=== PATIENT | female | born 1985 | race Caucasian/White ===

== ENCOUNTER → 2017-09-23 09:35 | Outpatient (CLI) | payer OTHER, MEDICAID, SELFPAY | PROVIDERS: Family Provider Family Medicine; PCP Family Medicine | DX: R68.89 Other general symptoms and signs (principal) | CPT/HCPCS: 87400 ==

== ENCOUNTER → 2018-06-27 11:11 | Outpatient (CLI) | payer OTHER, MEDICAID, SELFPAY ==
--- NOTE | 2018-06-27 11:12 | DI.RAD.S_ITS ---
PROCEDURE: XR RIBS RT MIN 3V W CXR 1V INDICATIONS: right sided ant chest wall pain after falling down stairs 4d TECHNIQUE: 2 views of the right ribs were acquired, along with a single view chest. COMPARISON: None. FINDINGS: Surgical changes and devices: None. Bones and chest wall: No fractures or dislocations. No suspicious bony lesions. Overlying soft tissues appear unremarkable. Lungs and pleura: No pleural effusions or pneumothorax. Lungs appear clear. Mediastinum: Mediastinal contours appear normal. Heart size is normal. IMPRESSION: No displaced right rib fractures. Dictated by: Marla Tavera M.D. on 06/27/2018 at 11:50 Approved by: Marla Tavera M.D. on 06/27/2018 at 11:58
== END ==
PROVIDERS: PCP Family Medicine; Visit Provider Physician Assistant
DX: R07.89 Other chest pain (principal)
CPT/HCPCS: 71101

== ENCOUNTER → 2018-11-13 15:14 | Outpatient (CLI) | payer OTHER, MEDICAID, SELFPAY ==
[2018-11-13 16:57] LABS: HCG Quantitative /Beta subunit < 2.39 mIU/mL
== END ==
PROVIDERS: PCP Family Medicine; Visit Provider Physician Assistant
DX: M54.5 Low back pain (principal)
CPT/HCPCS: 36415; 84702

== ENCOUNTER → 2019-01-10 08:01 | Outpatient (CLI) | payer OTHER, MEDICAID, SELFPAY ==
[2019-01-10 08:32] LABS: Appearance Urine UA CLEAR; Bilirubin Urine UA NEGATIVE (NEGATIVE); Color Urine UA YELLOW; Glucose Urine UA NEGATIVE (Negative); Ketones Urine UA NEGATIVE (NEGATIVE); Leukocyte Esterase Urine UA NEGATIVE (NEGATIVE); Nitrite Urine UA NEGATIVE (Negative); Occult Blood Urine UA NEGATIVE (Negative); Protein Urine UA NEGATIVE (Negative); Specific Gravity Urine UA 1.015 (1.000-1.035); Urobilinogen Urine UA 0.2 E.U./dL (0.2)
[2019-01-10 09:05] LABS: Add Manual Diff / Slide Review NO; Basophils Absolute Auto 100 /uL (0-100); Basophils Percent Auto 0.9 % (0-2); Eosinophils Absolute Auto 200 /uL (0-450); Eosinophils Percent Auto 2.7 % (2-4); Hematocrit 38.6 % (36-46); Hemoglobin 12.9 g/dL (12.0-16.0); Lymphocytes Absolute Auto 2300 /uL (1100-4500); Lymphocytes Percent Auto 28.7 % (25-40); Mean Corpuscular HGB Conc 33.3 % (30-36); Monocytes Absolute Auto 400 /uL (0-900); Monocytes Percent Auto 4.8 % (3-14); Neutrophils Absolute Auto 5100 /uL (1500-7000); Neutrophils Percent Auto 62.9 % (50-75); Platelet Count 334 X10^3/uL (150-400); Red Blood Cell Count 4.29 X10^6/uL (4.0-5.2); Red Cell Distribution Width 12.3 % (11.6-14.8); White Blood Cell Count 8.1 X10^3/uL (4.5-11.0)
[2019-01-10 09:36] LABS: Hepatitis B Surface Antigen NEGATIVE s/c (NEGATIVE)
[2019-01-10 09:57] LABS: HIV 1 & 2 Ab/Ag 4th Gen Combo NEGATIVE (NEGATIVE)
[2019-01-10 18:11] LABS: Hep C Virus Ab w/Reflex Quant REACTIVE s/c (NEGATIVE)
[2019-01-15 15:19] LABS: RPR Screen NONREACTIVE
== END ==
PROVIDERS: PCP Family Medicine; Visit Provider Specialist
DX: Z34.81 Encounter for supervision of other normal pregnancy, first trimester (principal)
CPT/HCPCS: 36415; 80055; 81003; 86787; 86803; 86850; 86900; 86901; 87086; 87389; 87522

== ENCOUNTER → 2019-01-26 08:10 | Outpatient (CLI) | payer OTHER, MEDICAID, SELFPAY | PROVIDERS: PCP Family Medicine; Visit Provider Specialist | DX: O09.521 Supervision of elderly multigravida, first trimester (principal); Z3A.10 10 weeks gestation of pregnancy | CPT/HCPCS: 36415 ==

== ENCOUNTER → 2019-02-23 14:45 | Outpatient (CLI) | payer OTHER, MEDICAID, SELFPAY | PROVIDERS: PCP Family Medicine; Visit Provider Specialist | DX: R30.0 Dysuria (principal) | CPT/HCPCS: 87086 ==

== ENCOUNTER → 2019-04-23 07:12 | Outpatient (CLI) | payer OTHER, MEDICAID, SELFPAY ==
--- NOTE | 2019-04-23 07:14 | DI.US.S_ITS ---
PROCEDURE: US OB >= 14 WEEKS FETUS INDICATIONS: ANATOMY OUTSIDE/PRIOR DATING DATA: Last menstrual period (LMP): 11/12/18. LMP-based estimated date of delivery ([place]): 08/20/19. First dating scan (date and location): 01/10/19. Outside Estimated date of delivery ([place]) from first dating scan: 08/22/19. TECHNIQUE: Real-time scanning was performed of the fetus, with image documentation and biometric measurements. Endovaginal scanning: Not performed COMPARISON: [facility], , OB >= 14 WEEKS FETUS, 03/26/2019, 10:16. FINDINGS: General: A single living intrauterine gestation is present. Presentation: Breech. Placenta: Placental position is posterior. The edge is within 1 cm of the internal cervical os. Amniotic fluid index: 13.6 cm, normal range is 5-24 cm. heart rate: 144 beats per minute. Maternal cervical canal: 3.9 cm long. Normal lower limit is 2.5 cm. biometrics: Biparietal diameter: 5.3 cm, 22 weeks, zero days Head circumference: 20.0 cm, 22 weeks, one day Abdominal circumference: 19.2 cm, 24 weeks, zero days Femur length: 4.2 cm, 23 weeks, 5 days Estimated gestational age from initial scan: 22 weeks, 5 days. Composite gestational age from present scan: 23 weeks, zero days Estimated weight and percentile: 607 g, 83rd percentile Measurement variability for biometric dating: +/- 7 days from 14 weeks to 15 weeks 6 days gestation, +/- 10 days from 16 weeks to 21 weeks 6 days gestation, +/- 2 weeks from 22 weeks to 27 weeks 6 days gestation, +/- 3 weeks for 28 weeks gestation or later. weight reference: 4500 g or EFW >90/95% is considered macrosomia or large for gestational age. EFW <10% is small for gestational age. EFW 5% or less is considered intra-uterine growth restriction. Anatomic survey: Neuro: Ventricles are non-dilated at less than 10 mm. Cisterna magna is normal at 3-11 mm. Cerebellum is normal in size and morphology. Nuchal skin fold: Normal at less than 6 mm between 14-21 weeks gestational age. Face: Nose and lips, facial profile are normal. Spine: No evidence for spina bifida. Heart: 4-chambered heart is present, with normal ventricular outflow tracts. Diaphragm: Diaphragm is intact. Stomach: Left-sided stomach is present. Kidneys: No hydronephrosis. Normal is less than 5 mm in 2nd trimester, less than 7 mm in 3rd trimester. Cord: 3-vessel cord has orthotopic insertion. Bladder: Normal in size. Extremities: All 4 extremities identified. IMPRESSION: 1. Single intrauterine with a gestational age of 23 weeks, zero days, in good agreement with the clinically assigned gestational age. 2. Symmetric growth and normal anatomy. 3. Posterior marginal placenta previa. Followup after 30 weeks is recommended to assess for placental migration. Dictated by: Patricia Yates M.D. on 04/23/2019 at 14:25 Approved by: Patricia Yates M.D. on 04/23/2019 at 14:34
== END ==
PROVIDERS: PCP Family Medicine; Visit Provider Specialist
DX: Z34.82 Encounter for supervision of other normal pregnancy, second trimester (principal); Z3A.23 23 weeks gestation of pregnancy
CPT/HCPCS: 76811

== ENCOUNTER → 2019-05-22 07:17 | Outpatient (CLI) | payer OTHER, MEDICAID, SELFPAY ==
[2019-05-22 09:15] LABS: Hematocrit 33.3 % (36-46); Hemoglobin 11.6 g/dL (12.0-16.0)
[2019-05-22 09:27] LABS: GTT (PREG) 1 Hour PP 50gm Dose 119 mg/dL (76-139)
== END ==
PROVIDERS: Visit Provider Specialist
DX: Z34.92 Encounter for supervision of normal pregnancy, unspecified, second trimester (principal); Z3A.26 26 weeks gestation of pregnancy
CPT/HCPCS: 36415; 82950; 85014; 85018; 86850

== ENCOUNTER → 2019-07-25 09:02 | Outpatient (CLI) | payer OTHER, MEDICAID, SELFPAY ==
[2019-07-26 13:32] LABS: Strep Grp B PCR POS for Grp B Strep
== END ==
PROVIDERS: Visit Provider Specialist
DX: Z34.03 Encounter for supervision of normal first pregnancy, third trimester (principal); Z3A.35 35 weeks gestation of pregnancy
CPT/HCPCS: 87653

== ENCOUNTER 2019-08-20 16:31 | Inpatient (IN) | payer OTHER, MEDICAID, SELFPAY ==
--- NOTE | 2019-08-20 16:54 | P.HPOB_ITS ---
OB HPI Date/Time Date of admission: 08/20/19 Date Patient Seen: 08/20/19 Time Patient Seen: 16:57 History of Present Condition Chief complaint: Obs : 3 Para: 2 Estimated Date of Delivery: 08/24/19 Estimated Gestational Age (weeks): 39 Narrative: Jennifer Sanchez is a 33 year old female admitted with spontaneous r upture membranes in early labor History of Present care: good care, initiated at week # (7), number of visits (13) and pounds weight gain (56) Dating criteria: LMP confirmed by 1st trimester US Ultrasounds: normal mid trimester US Abnormal ultrasound findings: Initial low lying placenta that resolved Obstetrical complications: none Medical complications: none Preadmission Labs Blood type: AB (-) negative -: Antibody screen: negative, GBS status: positive, HBsAG: negative, HIV: negative and RPR/VDLR: negative -: Chlamydia screen: not detected and Gonorrhea screen: not detected -: Rubella: not immune and Varicella: immune HCAB: negative Cell-free DNA: Normal female 1 hr GTT: 119 Prior (ies) History: 06/26/2004 40 week gestation male 8 lb 12 oz vaginal delivery 05/10/08 39 week gestation female 8 lb 12 oz vaginal delivery Evaluation Evaluation Baseline heart rate: 140 Variability: Moderate (11-25) monitor accelerations: Present monitor decelerations: Absent Contraction Frequency (minutes): 5 Uterine Contraction Intensity: Moderate Category of Tracing: I Cervical dilation (cm): 1 Cervical effacement (%): 75 station: -1 Non-invasive Membranes Rupture Test: positive [facility] Social History Smoking Status: Former smoker Meds Home Medications and Allergies Home Medications Medication Instructions Recorded Confirmed Type vits no.126-ferrous fum 1 tab PO DAILY #90 tab 12/18/18 05/30/19 Rx 28 mg iron-folic acid 800 mcg tablet Allergies Allergy/AdvReac Type Severity Reaction Status Date / Time cranberry Allergy Severe Anaphylaxis Verified 05/30/19 15:14 grape Allergy Mild Anaphylaxis Verified 05/30/19 15:14 Review of Systems Review of Systems Narrative: Patient had spontaneous rupture membranes at 3:00 p.m. clear fluid. Patient denies headaches, scotomata, epigastric pain. Good movement. Increasingly strong contractions. ROS: Yes All systems reviewed with the patient and are negative except as otherwise documented Exam Vital Signs (past 8 hours): Blood pressure 121/74, pulse of 84, temperature 97.4? Narrative Exam Narrative: HEENT exam within normal limits. Lungs are clear to auscultation percussion. Heart is regular rate and rhythm no S3-S4 or murmurs. Abdomen is soft, non tender. Fetus is vertex. Extremities without edema and nontender. Assessment and Plan Assessment and Plan Assessment and Plan narrative: 39 week gestation with spontaneous rupture membranes in early labor. Anticipate vaginal delivery.
[2019-08-20 18:53] VITALS: BP 121/74
[2019-08-20 19:00] LABS: Add Manual Diff / Slide Review NO; Basophils Absolute Auto 100 /uL (0-100); Eosinophils Absolute Auto 200 /uL (0-450); Eosinophils Percent Auto 1.7 % (2-4); Hematocrit 36.1 % (36-46); Hemoglobin 12.3 g/dL (12.0-16.0); Lymphocytes Absolute Auto 2300 /uL (1100-4500); Mean Corpuscular Hemoglobin 29.3 PG (26-34); Mean Corpuscular Volume 86.4 fL (80-100); Monocytes Absolute Auto 500 /uL (0-900); Monocytes Percent Auto 4.1 % (3-14); Neutrophils Absolute Auto 8400 /uL (1500-7000); Neutrophils Percent Auto 73.2 % (50-75); Platelet Count 288 X10^3/uL (150-400); Red Blood Cell Count 4.18 X10^6/uL (4.0-5.2); Red Cell Distribution Width 12.9 % (11.6-14.8); White Blood Cell Count 11.4 X10^3/uL (4.5-11.0)
[2019-08-20] MEDS: LACTATED RINGERS 1,000 ML 100 ML IV ×2 (19:14→23:28)
[2019-08-20 19:16] VITALS: TEMP 37.3
[2019-08-20] MEDS: fentaNYL 100 MCG/2 ML INJ IV (19:16)
[2019-08-20] MEDS: PENICILLIN G POTASSIUM 5,000,000 UNIT in DEXTROSE 5% IN WATER 250 ML IV (19:31)
[2019-08-20] MEDS: PENICILLIN G POTASSIUM 3,000,000 UNIT/50 ML FROZ.PIGGY 100 UNIT IV (23:30)
--- NOTE | 2019-08-21 02:51 | P.PCNOB_ITS ---
Labor & Delivery Delivery date: 08/21/19 Intrapartal events: None Delivery monitor: external FHT and external uterine Route of delivery: L&D Laceration Description: None Estimated blood loss (mL): 300 Anesthesia type: Epidural Narrative: Patient arrived on Labor and delivery with spontaneous rupture membranes in early labor. She received an epidural catheter for pain control. heart tones category 1 to category 2 throughout labor. She delivered spontaneously, over an intact perineum. The viable female infant was placed on maternal abdomen and after the cord stopped pulsating the cord was clamped, cut, and cord bloods obtained. The placenta delivered spontaneously, intact, with 3 vessels. There were no cervical, vaginal, or perineal tears. Both mother doing well. Godwin Baby 1: Infant gender: Female Presentation: vertex position: Right Occiput Anterior Placenta delivery description: Spontaneous cord vessel description: 3 Vessels score (1 min): 8 score (5 min): 9 Plan for aftercare: Routine post vaginal delivery
[2019-08-21] MEDS: IBUPROFEN 600 MG TABLET PO ×2 (07:52→16:11)
[2019-08-21] MEDS: DERMOPLAST SPRAY 20% 60 ML 1 SPRAY TOP (07:52)
--- NOTE | 2019-08-21 10:11 | PM.OBDS.1 ---
Discharge Providers Provider Date of admission: 08/20/19 16:31 Discharge Date: 08/21/19 Consults: 08/20/19 18:48 Consult to Anesthesiology Urgent Comment: Consulting Provider: Anesthesiologist Reason for consultation: Epidural Has provider been notified: No 08/22/19 02:48 Consult to Electronic Parts Salesperson Routine Comment: Discharge provider: Falguni Godwin MD Summary Hospital Course Date Patient Seen: 08/21/19 Time Patient Seen: 10:11 Procedures: Epidural catheter, spontaneous vaginal delivery Hospital Course: Patient arrived on Labor and delivery after spontaneous rupture membranes in active labor. She received an epidural catheter for pain control. She had a spontaneous vaginal delivery of a viable female infant weighing 7 lb 15 oz. She is urinating and ambulating well. She is tolerating regular diet and breast-feeding without difficulty. Bleeding is minimal. No headaches, scotomata, epigastric pain. Peripartum Data Infant Delivery Method: Natural Vaginal Laceration description: None Procedures: Epidural catheter, spontaneous vaginal delivery complications: none 1: Gender: Female Disposition of : home Discharge Diagnosis (1) Vaginal delivery: Status: Acute Status at Discharge Cognitive/behavioral status at discharge: oriented Functional status at discharge: independent ambulation Overall status at discharge: patient is progressing back to baseline Time Spent with Patient Time attestation: Total time spent providing and/or coordinating discharge services: Objective Labs Result Diagrams: 08/20/19 18:30 Labs: Laboratory Results - last 24 hr 08/20/19 08/20/19 18:30 18:30 WBC 11.4 H RBC 4.18 Hgb 12.3 Hct 36.1 MCV 86.4 MCH 29.3 MCHC 34.0 RDW 12.9 Plt Count 288 Neut % (Auto) 73.2 Lymph % (Auto) 20.0 L [place] % (Auto) 4.1 Eos % (Auto) 1.7 L Baso % (Auto) 1.0 Neut # (Auto) 8400 H Lymph # (Auto) 2300 [place] # (Auto) 500 Eos # (Auto) 200 Baso # (Auto) 100 Blood Type AB Negative Antibody Screen Negative Exam Vital Signs (past 8 hours): Blood pressure 125/72, pulse 68, temperature 98.3? Narrative Exam Narrative: Abdomen is soft, nontender. Uterus is firm, at U, nontender. Mild lochia. Extremities without edema and nontender. Patient is AB negative but the baby is B negative so no RhoGAM is indicated, she is rubella nonimmune and will receive the rubella vaccine prior to discharge. She received Tdap in the 3rd trimester. Discharge Plan Discharge Plan Patient Disposition: Home Discharge orders & Medications Prescriptions: New ibuprofen 600 mg Tablet 600 mg PO Q6HR PRN (Reason: Pain, Mild (1-3)) Qty: 30 RF: 0 Continued Classic 28 mg iron- 800 mcg tablet 1 tab PO DAILY Qty: 90 RF: 3 Follow up/Referrals: Falguni Godwin MD [Physician] - 09/19/19 10:00 am Diet/Activity/Treatments Diet: Regular Activity: Nothing in vagina for 4 weeks Skin/Wound/Dressing Care Report to your healthcare provider any signs of infection, such as:: chills, fever and increased pain
[2019-08-21] MEDS: HYDROCODONE/ACET 5/325 TABLET 2 TAB PO ×2 (11:10→16:12)
[2019-08-21 16:33] VITALS: BP 115/56; PULSE 76; RESP 16; TEMP 36.7
[2019-08-21] MEDS: MEASLES,MUMPS,RUBELLA VACC/PF 0.5 ML VIAL SUBCUT (18:32)
== END 2019-08-21 19:23 | disposition home or self-care (01) | DRG 560 ==
PROVIDERS: Admitting Provider Specialist; Referring Provider Specialist; Visit Provider Specialist
DX: O99.824 Streptococcus B carrier state complicating childbirth (principal); Z3A.39 39 weeks gestation of pregnancy; Z37.0 Single live birth
CPT/HCPCS: 01967; 59050; 59409; 85025; 86850; 86900; 86901; G0379; J2540; J3010

== ENCOUNTER 2019-11-10 14:57 | Emergency (ER) | payer OTHER, MEDICAID, SELFPAY ==
--- NOTE | 2019-11-10 15:02 | ED.DENTAL ---
HPI - Dental/Oral General Chief complaint: Dental/Oral Stated complaint: states severe tooth pain Time Seen by Provider: 11/10/19 15:00 Source: patient Mode of arrival: Ambulatory Limitations: no limitations History of Present Illness HPI Narrative: 33F former smoker with severe dental pain for the past few days. She denies injury and has no facial swelling. She has an appointment with her dentist on Tuesday. MD Complaint: tooth pain Teeth map: 1. Onset (ago): day(s) Duration: constant Severity: moderate Relieving factors: nothing Exacerbating factors: nothing Context: history of dental caries Treatment prior to arrival: none Related Data Previous Rx's Medication Instructions Recorded vits no.126-ferrous fum 1 tab PO DAILY #90 tab 12/18/18 28 mg iron-folic acid 800 mcg tablet ibuprofen 600 mg PO Q6HR PRN #30 tab 08/21/19 Allergies Allergy/AdvReac Type Severity Reaction Status Date / Time cranberry Allergy Severe Anaphylaxis Verified 09/19/19 10:10 grape Allergy Mild Anaphylaxis Verified 09/19/19 10:10 Review of Systems Constitutional Constitutional: Denies chills, Denies fatigue, Denies fever(s), Denies frequent falls, Denies lethargy and Denies weakness Eyes Eyes: Denies change in vision, Denies eye discharge, Denies irritation and Denies loss of vision ENT Ears, Nose, Mouth, and Throat: Denies change in voice, Reports dental pain, Denies dizziness, Denies neck pain, Denies sore throat and Denies throat swelling Cardiovascular Cardiovascular: Denies chest pain, Denies irregular heart rhythm, Denies lightheadedness, Denies palpitations, Denies dyspnea, Denies dyspnea on exertion and Denies orthopnea Respiratory Respiratory: Denies cough, Denies dyspnea, Denies dyspnea on exertion and Denies wheezing Gastrointestinal Gastrointestinal: Denies abdominal pain, Denies change in bowel habits, Denies diarrhea, Denies nausea and Denies vomiting Musculoskeletal Musculoskeletal: Denies neck pain and Denies numbness Integumentary/Breasts Skin/Breast: Denies pruritus, Denies erythema, Denies rash and Denies wounds Neurologic Neurologic: Denies behavioral changes, Denies confusion, Denies dizziness, Denies frequent falls, Denies loss of vision, Denies numbness and Denies weakness Psychiatric Psychiatric: Denies anxiety, Denies behavioral changes, Denies confusion, Denies depression, Denies homicidal ideation and Denies suicidal ideation Endocrine Endocrine: Denies fatigue, Denies flushing and Denies palpitations Hematologic/Lymphatic Hematologic/Lymphatic: Denies easy bruising Allergic/Immunologic Allergic/Immunologic: Denies urticaria, Denies throat swelling and Denies wheezing Patient History Medical History GERD (gastroesophageal reflux disease) (Acute) Low back pain (Chronic) Vaginal delivery (Acute) Surgical History Hx of cholecystectomy (Resolved 2010) Social History Smoking Status: Former smoker Smoking Status: Former smoker Exam Narrative Exam Narrative: GEN: AOx3 and in mild distress EYES: Pupils are equal, round, and reactive to light and accommodation. Extraoccular muscles are intact bilaterally. There is no subconjunctival hemorrhage or exudate. ENT: no facial swelling, induration, redness. No intraoral abscess. Poor dental hygiene CHEST: Lungs are clear to auscultation bilaterally and free of wheezes, rales, or rhonchi. Heart rate is regular rhythm, there are no murmurs, clicks, rubs, or gallops. There is no chest wall tenderness. ABD: Abdomen is soft and nontender. There is no guarding or rebound. Bowel sounds are normal in all 4 quadrants. There is no mass or organomegaly. EXT: Full painless ROM of all extremities with no loss of sensation or strength. SKIN: Warm, pink, and dry. No erythema or rash Initial Vital Signs Initial Vital Signs: Vital Signs Temperature 98.7 F 11/10/19 15:08 Pulse Rate 94 H 11/10/19 15:08 Respiratory Rate 17 11/10/19 15:08 Blood Pressure 120/60 11/10/19 15:08 Pulse Oximetry 100 11/10/19 15:08 Procedures Nerve Block Nerve Block 1: Time out performed: Yes Local Anesthetic: bupivacaine 0.25% and with epi Amount of anesthesia used (mL): 4 Side: right Intraoral Nerve Block: inferior alveolar Procedure Successful: Yes Patient Tolerated Procedure: Well Complications: none Course Orders Ordered: Discontinued Medications Bupivacaine HCl/Epinephrine Bitart (Sensorcaine 0.5% W/ Epi (Pf)) 5 ml SUBCUT NOW ONE Stop: 11/10/19 15:09 Last Admin: 11/10/19 15:19 Dose: 5 ml Documented by: DAVE Vital Signs Vital signs: Vital Signs - 8 hr 11/10/19 15:08 Temperature 98.7 F Pulse Rate 94 H Respiratory Rate 17 Blood Pressure 120/60 Pulse Oximetry 100 Discharge Plan Departure Patient Disposition: Home Clinical Impression: Toothache Discharge Date/Time: 11/10/19 15:26 Instructions: DI for Dental Pain Activity Restrictions/Additional Instructions: *You have been diagnosed with [dental pain] *What to do: *Take medications as directed *Follow up with your primary care provider in 2-3 days, call for an appointment. Let them know you were seen in the Emergency Department and that we ask that you be seen in follow up *Return to ER if you should have any new, worsening or concerning symptoms Prescriptions: No Action Classic 28 mg iron- 800 mcg tablet 1 tab PO DAILY Qty: 90 RF: 3 ibuprofen 600 mg Tablet 600 mg PO Q6HR PRN (Reason: Pain, Mild (1-3)) Qty: 30 RF: 0
[2019-11-10 15:08] VITALS: BP 120/60; PULSE 94; RESP 17; TEMP 37.1; O2SAT 100; BMI 35.0
[2019-11-10] MEDS: BUPIVACAINE 0.5% W/ EPI (PF) 30 ML VIAL 5 ML SUBCUT (15:19)
== END 2019-11-10 15:26 | disposition home or self-care (01) ==
LOC: ED 15:20
PROVIDERS: Emergency Provider Emergency Medicine
DX: K08.89 Other specified disorders of teeth and supporting structures (principal)
CPT/HCPCS: 64450; 99281; 99283

== ENCOUNTER → 2020-03-18 11:09 | Outpatient (CLI) | payer OTHER, MEDICAID, SELFPAY | PROVIDERS: PCP Registered Nurse; Visit Provider Registered Nurse | DX: N89.8 Other specified noninflammatory disorders of vagina (principal) | CPT/HCPCS: 87210 ==

== ENCOUNTER → 2020-03-19 12:00 | Outpatient (CLI) | payer OTHER, MEDICAID, SELFPAY ==
--- NOTE | 2020-03-19 12:01 | DI.US.S_ITS ---
PROCEDURE: US ABDOMEN LIMITED INDICATIONS: lump of skin of back TECHNIQUE: Real-time focused scanning was performed of the midline back at the palpable abnormality 2 cm inferior from the bra strap, with image documentation. COMPARISON: None. FINDINGS: Subcutaneous isoechoic mass measuring 4.3 x 3.8 x 1.1 cm. No internal vascularity demonstrated. No posterior acoustic features. No fluid collection. 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 If the mass increases in size or becomes painful biopsy should be considered to exclude liposarcoma. Dictated by: Luis Nair M.D. on 03/19/2020 at 14:04 Approved by: Luis Nair M.D. on 03/19/2020 at 14:07
[2020-03-19 13:16] LABS: Alanine Aminotransferase 29 IU/L (<35); Albumin 4.4 g/dL (3.5-5.0); Albumin Globulin Ratio 1.5 (1.0-2.8); Alkaline Phosphatase 93 U/L (38-126); Aspartate Aminotransferase 24 IU/L (14-36); BUN Creatinine Ratio 27.4 (6-22); Bilirubin Total 0.3 mg/dL (0.2-1.3); Blood Urea Nitrogen 17 mg/dL (7-17); Calcium 9.2 mg/dL (8.4-10.2); Carbon Dioxide 29 mmol/L (22-32); Chloride 103 mmol/L (98-107); Estimated Glomerular Filt Rate > 60.0 mL/min (>60); Globulin 2.9 g/dL (1.7-4.1); Glucose 79 mg/dL (70-100); HEMOLYSIS < 15 (0-50); Potassium 4.1 mmol/L (3.4-5.1); Sodium 138 mmol/L (137-145); Total Protein 7.3 g/dL (6.3-8.2)
== END ==
PROVIDERS: PCP Registered Nurse; Referring Provider Registered Nurse; Visit Provider Registered Nurse
DX: R22.2 Localized swelling, mass and lump, trunk (principal)
CPT/HCPCS: 36415; 76705; 80053

== ENCOUNTER 2023-04-19 18:28 | Emergency (ER) | payer OTHER, MEDICAID, SELFPAY ==
[2023-04-19] VITALS (9 sets, daily range): BP systolic 114–131; BP diastolic 61–84; PULSE 103–123; RESP 18; TEMP 36.8; O2SAT 98–100; BMI 29.7
[2023-04-19 19:03] LABS: Add Manual Diff / Slide Review NO; Basophils Absolute Auto 100 /uL (0-100); Basophils Percent Auto 0.5 % (0-2); Eosinophils Absolute Auto 200 /uL (0-450); Hematocrit 38.4 % (36-46); Hemoglobin 12.8 g/dL (12.0-16.0); Lymphocytes Absolute Auto 2100 /uL (1100-4500); Lymphocytes Percent Auto 13.2 % (25-40); Mean Corpuscular HGB Conc 33.5 % (30-36); Mean Corpuscular Hemoglobin 29.6 PG (26-34); Mean Corpuscular Volume 88.2 fL (80-100); Monocytes Absolute Auto 1100 /uL (0-900); Monocytes Percent Auto 7.1 % (3-14); Neutrophils Absolute Auto 12500 /uL (1500-7000); Neutrophils Percent Auto 78.2 % (50-75); Platelet Count 364 X10^3/uL (150-400); Red Blood Cell Count 4.35 X10^6/uL (4.0-5.2); Red Cell Distribution Width 12.8 % (11.6-14.8)
[2023-04-19 19:10] LABS: Alanine Aminotransferase 21 IU/L (<35); Albumin 4.1 g/dL (3.5-5.0); Albumin Globulin Ratio 1.1 (1.0-2.8); Alkaline Phosphatase 118 U/L (38-126); Aspartate Aminotransferase 20 IU/L (14-36); BUN Creatinine Ratio 18.1 (6-22); Bilirubin Total 0.4 mg/dL (0.2-1.3); Blood Urea Nitrogen 13 mg/dL (7-17); Calcium 9.6 mg/dL (8.4-10.2); Carbon Dioxide 25 mmol/L (22-32); Chloride 98 mmol/L (98-107); Estimated Glomerular Filt Rate > 60 mL/min (>60); Globulin 3.9 g/dL (1.7-4.1); Glucose 118 mg/dL (70-100); HEMOLYSIS < 15 (0-50); Lipase 35 U/L (23-300); Potassium 3.6 mmol/L (3.4-5.1); Sodium 133 mmol/L (137-145)
[2023-04-19] MEDS: SODIUM CHLORIDE 0.9% 1,000 ML 1000 ML IV (21:30)
[2023-04-19 22:18] LABS: RBC Urine 0-1/HPF (0-5/HPF); WBC Urine 30-100/HPF (0-5/HPF)
[2023-04-19 22:19] LABS: Bacteria Urine Moderate (10-30); Culture Indicated Urine Specimen Cultured; Squamous Epithelial Cell Urine 1-5 /HPF (0-5/HPF)
[2023-04-19 22:21] LABS: Pregnancy Test Urine Negative (Negative)
--- NOTE | 2023-04-19 22:26 | ED.FEMALEGU ---
HPI - Female Genitourinary General Chief complaint: Urogenital-Female Stated complaint: lt back abd area sore/hx gallbladder removed Time Seen by Provider: 04/19/23 22:05 Source: patient Mode of arrival: Ambulatory History of Present Illness HPI Narrative: Five days ago this woman started to experience dysuria urgency and frequency. Subsequently she has developed fever, nausea no vomiting. She is been in bed most of the time these past few days. She has some left flank pain as well. No abdominal pain. No chronic health conditions. She thinks she might be somewhat dehydrated. Related Data Home Medications Medication Instructions Recorded Confirmed levonorgestrel 21 mcg/24 hours (8 intrauterine 03/23/23 03/23/23 yrs) 52 mg intrauterine device (Mirena) Previous Rx's Medication Instructions Recorded ibuprofen 600 mg tablet 600 mg PO Q6HR PRN Pain, Mild 08/21/19 (1-3) #30 tabs clindamycin phosphate 1 % topical 1 applic topical BID folliculitis 05/28/21 gel 2 weeks #60 grams cephalexin 500 mg capsule 500 mg PO QID #28 caps 04/19/23 Allergies Allergy/AdvReac Type Severity Reaction Status Date / Time No Known Drug Allergies Allergy Verified 04/19/23 18:38 Patient History Medical History (Updated 04/19/23 @ 22:30 by Calvin Murrell MD) Vaginal delivery GERD (gastroesophageal reflux disease) Low back pain Surgical History Hx of cholecystectomy (2010) tobacco type: vaping alcohol intake frequency: a few times a month Substance Use Type: marijuana Exam Narrative Exam Narrative: GENERAL: Alert, cooperative and in moderate discomfort HEAD: Atraumatic. Normocephalic. EYES: Sclera are clear without icterus. Extraocular movements are full. ENT: No rhinorrhea. NECK: Supple. Full range of motion. CARDIOVASCULAR: Normal rate and rhythm without murmur gallop or rub. RESPIRATORY: Clear to auscultation. Breath sounds equal bilaterally. No wheezes, rales, or rhonchi. GASTROINTESTINAL: Abdomen soft, non-tender, nondistended. EXTREMITIES: No edema, full range of motion. No obvious trauma. BACK: Normal inspection, CVA tenderness on the left NEURO: Nonfocal examination, normal speech, normal gait. SKIN: No rash or erythema of visible areas PSYCH: Normally oriented. Normal range of affect. Appropriate behavior Initial Vital Signs Initial Vital Signs: Vital Signs Temperature 98.3 F 04/19/23 18:34 Pulse Rate 123 H 04/19/23 18:34 Respiratory Rate 18 04/19/23 18:34 Blood Pressure 124/62 04/19/23 18:34 Pulse Oximetry 100 04/19/23 18:34 Oxygen Delivery Method Room Air 04/19/23 18:34 Course Orders Ordered: ED Orders 04/19/23 18:46 Complete Blood Count AUTO DIFF Stat Comprehensive Metabolic Panel Stat Lipase Stat 04/19/23 22:03 Urine Culture Stat Urine Microscopic Stat 04/19/23 22:05 Test Urine Stat Ondansetron HCl (Ondansetron 4 Mg Odt) 4 mg PO NOW PRN PRN Reason: Nausea And Vomiting Ondansetron HCl (Ondansetron 4 Mg/2 Ml Inj) 4 mg IV NOW PRN PRN Reason: Nausea And Vomiting Discontinued Medications Sodium Chloride (Normal Saline 0.9%) 1,000 mls @ 1,000 mls/hr IV BOLUS ONE Stop: 04/19/23 21:59 Last Admin: 04/19/23 21:30 Dose: 1,000 mls/hr Documented By: SB Vital Signs Vital signs: Vital Signs - 8 hr 04/19/23 18:34 04/19/23 20:07 04/19/23 20:07 Temperature 98.3 F Pulse Rate 123 H Respiratory Rate 18 Blood Pressure 124/62 131/84 Pulse Oximetry 100 100 Oxygen Delivery Method Room Air 04/19/23 20:30 04/19/23 21:00 04/19/23 22:14 Temperature Pulse Rate 106 H 111 H Respiratory Rate Blood Pressure Pulse Oximetry 100 100 100 Oxygen Delivery Method Room Air 04/19/23 22:15 04/19/23 22:15 Temperature Pulse Rate 107 H Respiratory Rate Blood Pressure 114/62 Pulse Oximetry 100 Oxygen Delivery Method Room Air MDM - Female Genitourinary Lab Data 04/19/23 18:46 04/19/23 18:46 Labs: Lab Results 04/19/23 04/19/23 04/19/23 Range/Units 18:46 22:03 22:05 WBC 16.0 H (4.5-11.0) X10^3/uL RBC 4.35 (4.0-5.2) X10^6/uL Hgb 12.8 (12.0-16.0) g/dL Hct 38.4 (36-46) % MCV 88.2 (80-100) fL MCH 29.6 (26-34) PG MCHC 33.5 (30-36) % RDW 12.8 (11.6-14.8) % Plt Count 364 (150-400) X10^3/uL Neut % (Auto) 78.2 H (50-75) % Lymph % (Auto) 13.2 L (25-40) % [place] % (Auto) 7.1 (3-14) % Eos % (Auto) 1.0 L (2-4) % Baso % (Auto) 0.5 (0-2) % Neut # (Auto) 82546 H (4574-2031) /uL Lymph # (Auto) 2100 (5695-4345) /uL [place] # (Auto) 1100 H (0-900) /uL Eos # (Auto) 200 (0-450) /uL Baso # (Auto) 100 (0-100) /uL Sodium 133 L (137-145) mmol/L Potassium 3.6 (3.4-5.1) mmol/L Chloride 98 (98-107) mmol/L Carbon Dioxide 25 (22-32) mmol/L BUN 13 (7-17) mg/dL Creatinine 0.72 (0.52-1.04) mg/dL Estimated GFR > 60 (>60) mL/min BUN/Creatinine Ratio 18.1 (6-22) Glucose 118 H (70-100) mg/dL Calcium 9.6 (8.4-10.2) mg/dL Total Bilirubin 0.4 (0.2-1.3) mg/dL AST 20 (14-36) IU/L ALT 21 (<35) IU/L Alkaline Phosphatase 118 (38-126) U/L Total Protein 8.0 (6.3-8.2) g/dL Albumin 4.1 (3.5-5.0) g/dL Globulin 3.9 (1.7-4.1) g/dL Albumin/Globulin Ratio 1.1 (1.0-2.8) Lipase 35 (23-300) U/L Urine RBC 0-1/hpf (0-5/HPF) Urine WBC 30-100/hpf H (0-5/HPF) Ur Squamous Epith Cells 1-5 /hpf (0-5/HPF) Urine Bacteria Moderate (10-30) H (None) Ur Culture Indicated? Specimen cultured Urine Test Negative (Negative) Urine Dip Bedside Urine Glucose Negative Bedside Urine Bilirubin - Negative Bedside Urine Ketone +/- 5 Urine Specific [place] 1.020 Bedside Urine Occult Blood + Bedside Urine pH 6.0 Bedside Urine Protein ++ 100 Bedside Urine Urobilinogen - Negative Bedside Urine Nitrite + Positive Bedside Urine Leukocytes +++ 500 Esterase MDM Narrative Medical decision making narrative: Young healthy adult woman with obvious pyelonephritis based on white blood cell count and urinalysis and symptoms. We will treat with IV antibiotics for 1st dose and send subsequent antibiotics as an outpatient. Careful return precautions given. I think outpatient therapy is safe and appropriate for now. Discharge Plan Departure Patient Disposition: Home Clinical Impression: Pyelonephritis Instructions: DI for Kidney Infection Activity Restrictions/Additional Instructions: You have a kidney infection. This almost certainly started as a bladder infection. The treatment is antibiotics for a week. You will feel a lot better if you keep herself very well hydrated, get extra rest. Take Tylenol 1000 mg together with ibuprofen 600 mg every 6 hours by the clock. Return to the ED for repeated vomiting, worsening symptoms generally or just feeling too poorly to take care of basic daily needs at home. You will continue to have fevers for a couple more days. And you will feel much better for 2 or 3 more days but from this time forward you should start to feel some improvement. If you are not feeling dramatically better by Tuesday you should see the doctor again. Prescriptions: New cephalexin 500 mg capsule 500 mg PO QID Qty: 28 0RF No Action clindamycin phosphate 1 % gel 1 applic topical BID 14 Days Qty: 60 1RF Mirena 21 mcg/24 hours (8 yrs) 52 mg intrauterine device intrauterine Patient Comments: Placed after child was born 2020 ibuprofen 600 mg Tablet 600 mg PO Q6HR PRN (Reason: Pain, Mild (1-3)) Qty: 30 0RF Referrals: Jessica Harper DO [Primary Care Provider] - Stand Alone Forms: Patient Portal/API
--- NOTE | 2023-04-19 22:34 | PC.NURSE ---
Antibiotics ordered. Verified with Provider Handy that no blood cultures are to be obtained.
[2023-04-19] MEDS: HYDROMORPHONE 0.5 MG INJ IV (22:37)
[2023-04-19] MEDS: KETOROLAC 30 MG/ML VIAL IV (22:37)
[2023-04-19] MEDS: cefTRIAXone 2,000 MG in SODIUM CHLORIDE 0.9% 100 ML 200 MG IV (22:37)
== END 2023-04-19 23:27 | disposition home or self-care (01) ==
PROVIDERS: Emergency Provider Family Medicine Addiction Medicine; PCP Family Medicine
DX: N12 Tubulo-interstitial nephritis, not specified as acute or chronic (principal)
CPT/HCPCS: 36415; 80053; 81003; 81015; 81025; 83690; 85025; 87077; 87086; 87186; 96361; 96365; 96375; 99284; J0696; J1170; J1885

== ENCOUNTER → 2023-05-13 12:31 | Outpatient (CLI) | payer OTHER, MEDICAID, SELFPAY ==
[2023-05-13 13:07] LABS: RBC Urine None Seen (0-5/HPF); WBC Urine 1-5/HPF (0-5/HPF)
[2023-05-13 13:08] LABS: Bacteria Urine Moderate (10-30); Culture Indicated Urine Specimen Cultured; Squamous Epithelial Cell Urine 5-10 /HPF (0-5/HPF)
== END ==
LOC: LAB 12:32
PROVIDERS: PCP Family Medicine; Referring Provider Family Medicine; Visit Provider Family Medicine
DX: N12 Tubulo-interstitial nephritis, not specified as acute or chronic (principal)
CPT/HCPCS: 81015; 87086

== ENCOUNTER → 2024-02-14 15:47 | Outpatient (CLI) | payer OTHER, MEDICAID, SELFPAY ==
[2024-02-14 16:35] LABS: Appearance Urine UA CLEAR; Bilirubin Urine UA NEGATIVE (NEGATIVE); Color Urine UA YELLOW; Glucose Urine UA NEGATIVE (Negative); Ketones Urine UA NEGATIVE (NEGATIVE); Leukocyte Esterase Urine UA NEGATIVE (NEGATIVE); Nitrite Urine UA NEGATIVE (Negative); Occult Blood Urine UA NEGATIVE (Negative); Protein Urine UA NEGATIVE (Negative); Specific Gravity Urine UA <=1.005 (1.000-1.035); Urobilinogen Urine UA 0.2 E.U./dL (0.2)
[2024-02-14 16:37] LABS: Urine Volume 10mL (spun); pH Urine UA 5.5 (4.5-8.0)
[2024-02-14 16:41] LABS: Bacteria Urine None Seen; Culture Indicated Urine Cult Not Indicated; RBC Urine None Seen (0-5/HPF); Squamous Epithelial Cell Urine None Seen (0-5/HPF); WBC Urine None Seen (0-5/HPF)
== END ==
PROVIDERS: PCP Family Medicine; Referring Provider Family Medicine; Visit Provider Family Medicine
DX: N39.0 Urinary tract infection, site not specified (principal)
CPT/HCPCS: 81001